=== PATIENT | female | born 1995 | race Caucasian/White ===

== ENCOUNTER 2016-06-19 16:44 | Emergency (ER) | payer MEDICAID, OTHER ==
[~2016-06-19 16:44] MED LIST: FERR325T72 PO; PREN1PAK2 PO
[2016-06-19 17:05] VITALS: BP 97/57; PULSE 84
--- NOTE | 2016-06-19 17:30 | PD ---
HPI Travel History International Travel<30 Days: No Contact w/Intl Traveler<30Days: No Known Affected Area: No History of Present Illness HPI This patient is a 20-year-old 2 para 2 previous set of twins present EDC is September 09, 2016 presently at 28 weeks and 2 days the patient states she presents with a chief complaint of earlier feeling one large contraction and then stop did not have any other contractions presently just feeling pressure no rupture of membranes no vaginal bleeding the baby is active No nausea no vomiting No fever no chills No headache or visual changes No diarrhea or constipation She denies any urinary tract symptoms last sexual intercourse was approximately 3 days ago [facility] her course has been unremarkable History Past Medical History Narrative Medical No known drug allergies history of anemia Obstetric History Obstetric History Previous section for twins November 22, 2011 she carried in both to term Past Surgical History Narrative Surgical 1 Family History Family History: Negative Social History Alcohol Use: No Tobacco Use: No Substance Abuse: No Allergies-Medications (Allergen,Severity, Reaction): Coded Allergies: No Known Allergies (Verified , 06/19/16) Home Meds Active Scripts Ferrous Gluconate 325 Mg [id number] Mg PO DAILY #30 TAB Ref 6 Prov:Leola Arias ALETA [facility] 06/06/16 Reported Medications W/O Vit A W/ Fe Carbo Pack (Citranatal Dha Pack)27-1 & 250 Mg Pack1 Ea PO DAILY 30 Days Ref 0 30 day supply. 04/24/16 Review of Systems General / Constitutional: No: Fever, Weight Gain, Weight Loss, Chills, Other Eyes: No: Diploplia, Blurred Vision, Visual changes, Pain, Photophobia, Other HENT: No: Headaches, Vertigo, Dental Difficulties, Lightheadedness, Other Cardiovascular: No: Irregular Rhythm, Chest Pain or Discomfort, Palpitations, Tachycardia, Syncope, Varicosities, Edema, Cyanosis, Other Respiratory: No: Cough, Short of Breath, Wheezing, Other Gastrointestinal: Abdominal Pain (feels pressure) Genitourinary: No: Urgency, Frequency, Dysuria, Nocturia, Hematuria, Decreased Urinary Output, Oliguria, Hesitancy, Dribbling, Incontinence, Pelvic Pain, Dyspareunia, Discharge, Menorrhagia, Vaginal Bleeding, Other Musculoskeletal: No: Limited ROM, Weakness, Cramping, Edema, Pain, Other Skin: No Rash, No Itching, No Dryness, No Lumps, No Change in Pigmentation, No Change in Nails, No Alopecia, No Lesions, No Breast Lumps, No Breast Tenderness , No Breast Swelling, No Other Neurologic: No: Weakness, Dizziness, Syncope, Focal Abnormalities, Coordination Problem, Headache, Slurred Speech, Seizures, Other Physical Exam Narrative GENERAL: Well-nourished, well-developed patient. Patient is alert oriented 3 and cooperative in no acute distress SKIN: Warm and dry. HEAD: Normocephalic and atraumatic. EYES: No scleral icterus. No injection or drainage. Conjunctiva are pink sclerae are clear ENT: No nasal drainage noted. Mucous membranes pink. Airway patent. CARDIOVASCULAR: Regular rate and rhythm without murmurs, gallops, or rubs. RESPIRATORY: Breath sounds equal bilaterally. No accessory muscle use. ABDOMEN/GI: Abdomen is gravid consistent with stated gestational age soft nontender no palpable contractions healed Pfannenstiel incision Gravid to [-] weeks size28 Fundal Height: [-] GENITOURINARY: Speculum exam is done patient has a thin white frothy discharge sample has been taken and sent for wet prep cervix is visibly closed External Genitalia: intact and normal in appearance BUS glands: [-] Cervix: [-] Posterior soft Dilatation: [-] Fingertip Effacement: [-] 0 Station: [-] Ballotable Presentation: [-] Vertex Membranes: [intact or ruptured] Uterine Contractions: [-] Mild uterine irritability FHT's: Category: [-] 1 Baseline: [-] 140 Reactive: [-]+ Variability: [-] Moderate jguu-[id number] variability Decels: [-]0 EXTREMITIES: No cyanosis or edema. 2+ reflexes NEUROLOGICAL: Awake and alert. Motor and sensory grossly within normal limits. Five out of 5 muscle strength in all muscle groups. Normal speech. Data Data Vital Signs Reviewed: Yes (blood pressure 97/57 pulse is 84 temperature is 99.1 ) Orders Vital Signs (Adult) .ON ADMISSION (06/19/16 17:14) ^ Labor Status (06/19/16 17:14) Urinalysis - C+S If Indicated (06/19/16 17:14) ^ Hydration (06/19/16 17:14) Fibronectin (06/19/16 17:14) Wet Prep Profile (06/19/16 17:14) MDM Medical Record Reviewed: Yes Interpretation(s) 20-year-old history of twins Presently at 28 weeks and 2 days Rule out UTI Chandu Georgina Narrative Course / MDM Laboratory data; fibronectin is negative Urine culture not indicated Wet prep positive for clue cells Will treat with Flagyl 500 mg by mouth twice a day for 5 days To give the patient her first dose here Having some mild uterine irritability will continue to hydrate with by mouth fluid she's not feeling any contractions If all resolved we'll discharge home Plan External monitoring By mouth fluid hydration Urinalysis fibronectin Wet prep Reevaluation Diagnosis Diagnosis: Primary Impression: Bacterial vaginosis Additional Impressions: 28 weeks gestation of Horton Erickson' contraction Disposition: 01 DISCHARGE HOME Condition: Stable Shi Shah MD Jun 19, 2016 17:30
[2016-06-19 18:09] LABS: BACTERIA, URINE OCC /hpf; BLOOD, URINE NEG (NEG); COMMENT (UR) CULT NOT INDICATED; CULTURE IF INDICATED CULT NOT INDICATED; GLUCOSE,URINE NEG (NEG); KETONE, URINE NEG (NEG); NITRITE,URINE NEG (NEG); SQUAMOUS EPITHELIAL CELL URINE 23 /hpf (0-5); URINE COLOR YELLOW (YELLW/STRAW)
[2016-06-19] MEDS ORDERED: metroNIDAZOLE 500 MG TAB PO ONE (18:30)
[2016-10-16] MEDS ORDERED: DEPO150I IM (09:33)
== END 2016-06-19 19:44 | disposition home or self-care (01) ==
LOC: HOBED 16:44
DX: O47.03 False labor before 37 completed weeks of gestation, third trimester (principal); O23.593 Infection of other part of genital tract in pregnancy, third trimester; O34.219 Maternal care for unspecified type scar from previous cesarean delivery; Z3A.28 28 weeks gestation of pregnancy
CPT/HCPCS: 81001; 82731; 87210; 99284

== ENCOUNTER 2016-09-04 09:17 | Inpatient (IN) | payer MEDICAID ==
[2016-09-04] VITALS (31 sets, daily range): BP systolic 73–128; BP diastolic 23–64; PULSE 67–103; RESP 18; TEMP 98.2–98.6
--- NOTE | 2016-09-04 09:28 | PD ---
HPI Date Seen: Sep 04, 2016 Time Seen: 09:20 (Josef Steele MD R1) Travel History International Travel<30 Days: No Contact w/Intl Traveler<30Days: No Known Affected Area: No (Josef Steele MD R1) History of Present Illness HPI 20 year old L2 at 39/2 weeks gestation presents to OB ED reporting ROM at about 07:00 this morning and feeling contractions. She states she noticed a leak of fluid this morning and noticed fluid running down her leg. She states her contractions have been regular. Reports +FM. She is GBS negative. She delivered twins at term in November of 2011 via and now desires a . Para: 1 : 2 (Josef Steele MD R1) History Past Medical History Medical History: Denies Significant Hx (Josef Steele MD R1) Obstetric History Obstetric History Patient delivered twins by on 11/22/2011 (Josef Steele MD R1) Past Surgical History Narrative Surgical in 2011 (Josef Steele MD R1) Family History Family History: Negative (Josef Steele MD R1) Social History Alcohol Use: No Tobacco Use: No Substance Abuse: No (Josef Steele MD R1) Allergies-Medications (Allergen,Severity, Reaction): Coded Allergies: No Known Allergies (Verified , 08/28/16) Home Meds Active Scripts Ferrous Gluconate 325 Mg [id number] Mg PO DAILY #30 TAB Ref 6 Prov:Leola Arias ALETA [facility] [place] 06/06/16 Reported Medications W/O Vit A W/ Fe Carbo Pack (Citranatal Dha Pack)27-1 & 250 Mg Pack1 Ea PO DAILY 30 Days Ref 0 30 day supply. 04/24/16 Review of Systems Except as stated in HPI: all other systems reviewed are Neg (Josef Steele MD R1) Physical Exam Narrative GENERAL: Well-nourished, well-developed patient. SKIN: Warm and dry. HEAD: Normocephalic and atraumatic. EYES: No scleral icterus. No injection or drainage. ENT: No nasal drainage noted. Mucous membranes pink. Airway patent. NECK: Supple, trachea midline. No JVD. CARDIOVASCULAR: Regular rate and rhythm without murmurs, gallops, or rubs. RESPIRATORY: Breath sounds equal bilaterally. No accessory muscle use. ABDOMEN/GI: Abdomen soft, non-tender, bowel sounds present, no rebound, no guarding Gravid to 39 weeks size GENITOURINARY: External Genitalia: intact and normal in appearance Cervix: [-] Dilatation: 4 Effacement: 90% Station: -1 Presentation: [-] Membranes: ruptured Uterine Contractions: q2-3 minutes FHT's: Category: I Baseline: 140s Reactive: yes Variability: mod Decels: intermittent variables EXTREMITIES: No cyanosis or edema. BACK: Nontender without obvious deformity. No CVA tenderness. NEUROLOGICAL: Awake and alert. Motor and sensory grossly within normal limits. Normal speech. (Josef Steele MD R1) Data Data Vital Signs Reviewed: Yes (Josef Steele MD R1) [facility] Medical Record Reviewed: Yes Plan 20 year old L2 at 39/2 weeks gestation presented to OB ED being admitted to L&D following SROM. 1. IUP - Category I tracing - Contractions q2-3 minutes on tocometer - Cervix: 490/-1 - Amnisure positive - Patient does not desire epidural - GBS negative - Continue expectant management dw Dr. Hernandez (Josef Steele MD R1) Attending Attestation The exam, history, and the medical decision-making described in the above note were completed with the assistance of the resident provider. I reviewed and agree with the findings presented. I attest that I had a [id number] encounter with the patient on the same day, and personally performed and documented my assessment and findings in the medical record. (Jerrell Hernandez MD) Josef Steele MD R1 Sep 04, 2016 09:28 Jerrell Hernandez MD Sep 04, 2016 12:02
[2016-09-04] MEDS ORDERED: LACTATED RINGER'S 1000 ML INJ 1,000 ML IV SCH (10:10)
[2016-09-04] MEDS ORDERED: LACTATED RINGER'S 1000 ML INJ 1,000 ML IV PRN (10:10)
[2016-09-04] MEDS ORDERED: MINERAL OIL 10 ML VIAL TOPICAL PRN (10:15)
[2016-09-04] MEDS ORDERED: LIDOCAINE HCL 1% 50 ML VIAL INFIL PRN (10:15)
[2016-09-04] MEDS ORDERED: LIDOCAINE HCL 1% 50 ML VIAL I-DERMAL PRN (10:15)
[2016-09-04] MEDS ORDERED: OXYTOCIN 30 UNITS-500ML PREMIX 500 ML IV ONE ×2 (10:15→12:15)
[2016-09-04] MEDS ORDERED: SODIUM CHLORID 0.9% 500 ML INJ 500 ML IV PRN (10:15)
[2016-09-04] MEDS ORDERED: CITRIC ACID-SODIUM CITRATE LIQ 30 ML UDC PO SCH (10:15)
[2016-09-04] MEDS ORDERED: SODIUM CHLOR 0.9% 1000 ML INJ 1,000 ML IV PRN (10:30)
[2016-09-04] MEDS ORDERED: ONDANSETRON HCL 4 MG/2 ML VIAL IV PRN (11:15)
--- NOTE | 2016-09-04 11:16 | HHI.HP ---
History & Physical H&P HPI Date Seen: Sep 04, 2016 Time Seen: 09:20 Travel History International Travel<30 Days: No Contact w/Intl Traveler<30Days: No Known Affected Area: No History of Present Illness HPI 20 year old L2 at 39/2 weeks gestation presents to OB ED reporting ROM at about 07:00 this morning and feeling contractions. She states she noticed a leak of fluid this morning and noticed fluid running down her leg. She states her contractions have been regular. Reports +FM. She is GBS negative. She delivered twins at term in November of 2011 via and now desires a . Para: 1 : 2 History (Limited) History Past Medical History Medical History: Denies Significant Hx Obstetric History Obstetric History Patient delivered twins by on 11/22/2011 Past Surgical History Narrative Surgical in 2011 Family History Family History: Negative Social History Alcohol Use: No Tobacco Use: No Substance Abuse: No Allergies-Medications Allergies-Medications (Allergen,Severity, Reaction): Coded Allergies: No Known Allergies (Verified , 08/28/16) Home Meds Active Scripts Ferrous Gluconate 325 Mg [id number] Mg PO DAILY #30 TAB Ref 6 Prov:AriasLeola CNM [employer] 06/06/16 Reported Medications W/O Vit A W/ Fe Carbo Pack (Citranatal Dha Pack)27-1 & 250 Mg Pack1 Ea PO DAILY 30 Days Ref 0 30 day supply. 04/24/16 ROS Review of Systems Except as stated in HPI: all other systems reviewed are Neg Physical Exam Physical Exam Narrative GENERAL: Well-nourished, well-developed patient. SKIN: Warm and dry. HEAD: Normocephalic and atraumatic. EYES: No scleral icterus. No injection or drainage. ENT: No nasal drainage noted. Mucous membranes pink. Airway patent. NECK: Supple, trachea midline. No JVD. CARDIOVASCULAR: Regular rate and rhythm without murmurs, gallops, or rubs. RESPIRATORY: Breath sounds equal bilaterally. No accessory muscle use. ABDOMEN/GI: Abdomen soft, non-tender, bowel sounds present, no rebound, no guarding Gravid to 39 weeks size GENITOURINARY: External Genitalia: intact and normal in appearance Cervix: [-] Dilatation: 4 Effacement: 90% Station: -1 Presentation: [-] Membranes: ruptured Uterine Contractions: q2-3 minutes FHT's: Category: I Baseline: 140s Reactive: yes Variability: mod Decels: intermittent variables EXTREMITIES: No cyanosis or edema. BACK: Nontender without obvious deformity. No CVA tenderness. NEUROLOGICAL: Awake and alert. Motor and sensory grossly within normal limits. Normal speech. Data Data Data Vital Signs Reviewed: Yes MDM MDM Medical Record Reviewed: Yes Plan 20 year old L2 at 39/2 weeks gestation presented to OB ED being admitted to L&D following SROM. 1. IUP - Category I tracing - Contractions q2-3 minutes on tocometer - Cervix: /-1 - Amnisure positive - Patient does not desire epidural - GBS negative - Continue expectant management dw Dr. Hernandez (Josef Steele MD R1) H&P The exam, history, and the medical decision-making described in the above note were completed with the assistance of the resident provider. I reviewed and agree with the findings presented. I attest that I had a [id number] encounter with the patient on the same day, and personally performed and documented my assessment and findings in the medical record. (Jerrell Hernandez MD) Josef Steele MD R1 Sep 04, 2016 11:16 Jerrell Hernandez MD Sep 04, 2016 12:01
--- NOTE | 2016-09-04 11:47 | PD.OB.DELI ---
Delivery Date: Sep 04, 2016 Anesthesia: None Episiotomy: None Vaginal Delivery: Normal, Spontaneous Presentation: Occiput anterior Nuchal Cord: None Delayed cord clamping (45 sec): No Infant: Female One Minute : 8 Five Minute : 8 Weight: 3340 grams Infant Care: Suctioned, Responded to stimulation Placenta: Spontaneous delivery, Intact, 3 vessel cord Laceration: Vaginal laceration, 1 deg Repair: Chromic interrupted Additional Information 20 year old now L3 delivered via uncomplicated over an intact perineum , Apgars were 8/8. Placenta delivered spontaneously intact with 3-vessel cord. Two small first degree lacerations were repaired using 3.0 chromic suture. EBL < 500 cc. Josef Steele MD R1 Sep 04, 2016 11:47
[2016-09-04 11:57] LABS: AUTOMATED NEUTROPHIL # 8.1 TH/MM3 (1.8-7.7); BASOPHIL % 0.3 % (0.0-2.0); EOSINOPHIL % 0.2 % (0.0-4.0); HEMATOCRIT 32.4 % (35.0-46.0); HEMO FLAGS DIFF FINAL; LYMPH % 16.7 % (9.0-44.0); LYMPHOCYTE # 1.8 TH/MM3 (1.0-4.8); MEAN CELL VOLUME 88.9 FL (80.0-100.0); MEAN CORPUSCULAR HEMOGLOBIN 30.8 PG (27.0-34.0); MEAN CORPUSCULAR HGB CONC 34.7 % (32.0-36.0); MONO % 6.4 % (0.0-8.0); NEUT % 76.4 % (16.0-70.0); PLATELET COUNT 143 TH/MM3 (150-450); RED BLOOD COUNT 3.64 MIL/MM3 (4.00-5.30); RED CELL DISTRIBUTION WIDTH 15.2 % (11.6-17.2); WHITE BLOOD COUNT 10.6 TH/MM3 (4.0-11.0)
[2016-09-04 12:00] LABS: BLOOD, URINE NEG (NEG); COMMENT (UR) CULT NOT INDICATED; CULTURE IF INDICATED CULT NOT INDICATED; GLUCOSE,URINE NEG (NEG); KETONE, URINE NEG (NEG); NITRITE,URINE NEG (NEG); SQUAMOUS EPITHELIAL CELL URINE 1 /hpf (0-5); URINE COLOR YELLOW (YELLW/STRAW)
[2016-09-04] MEDS ORDERED: SODIUM CHLORIDE 0.9% FLUSH 10 ML FLUSH IV FLUSH SCH (12:00)
[2016-09-04] MEDS ORDERED: ACETAMINOPHEN 325 MG TAB PO PRN (12:00)
[2016-09-04] MEDS ORDERED: ZOLPIDEM TARTRATE 5 MG TAB PO PRN (12:00)
[2016-09-04] MEDS ORDERED: BENZOCAINE 20% TOPICAL SPRAY 60 ML CAN TOPICAL PRN (12:00)
[2016-09-04] MEDS ORDERED: WITCH HAZEL 50%/GLYCERIN 12.5% 40 PAD JAR TOPICAL PRN (12:00)
[2016-09-04] MEDS ORDERED: DOCUSATE SODIUM 50 MG/SENNA 8.6 MG TAB PO PRN (12:00)
[2016-09-04] MEDS ORDERED: ONDANSETRON ODT 4 MG TAB PO PRN (12:00)
[2016-09-04] MEDS ORDERED: ALUMINUM/MAGNESIUM/SIMETH 30 ML CUP PO PRN (12:00)
[2016-09-04] MEDS ORDERED: SODIUM CHLORIDE 0.9% FLUSH 10 ML FLUSH IV FLUSH PRN (12:00)
[2016-09-04] MEDS: oxyCODONE/ACETAMINOPHEN 5 MG/325 MG TAB PO PRN ×2 (12:36→20:53)
[2016-09-04] MEDS ORDERED: MISOPROSTOL 200 MCG TAB PO ONE (14:00)
[2016-09-04] MEDS ORDERED: AMMONIA AROMATIC INHALANT 0.33 ML ONE (14:47)
[2016-09-04] MEDS ORDERED: DIPHTH/TETANUS/ACEL PERTUSSIS (BOOSTER) 0.5 ML VIAL/PFS IM ONE (16:00)
[2016-09-04] MEDS ORDERED: MEASLES, MUMPS, RUBELLA VACCINE 0.5 ML VIAL SQ ONE (16:00)
[2016-09-04] MEDS: IBUPROFEN 600 MG TAB PO PRN (17:36)
[2016-09-05] MEDS: IBUPROFEN 600 MG TAB PO PRN ×3 (01:49→19:12)
[2016-09-05] MEDS: oxyCODONE/ACETAMINOPHEN 5 MG/325 MG TAB PO PRN ×3 (01:49→19:13)
--- NOTE | 2016-09-05 07:26 | HHI.OB ---
Subjective Post Day: 1 Remarks Patient seen and examined this morning. AFVSS. Pain is well controlled. Decreased lochia. She is baby currently without any issues. Ambulating well without issues. Appetite is good. No nausea or vomiting. Denies breast tenderness. Objective Vitals/I&O Vital Signs Date Time Temp Pulse Resp B/P Pulse Ox O2 Delivery O2 Flow Rate FiO2 09/04/16 16:00 75 18 100/56 09/04/16 16:00 98.6 09/04/16 14:48 18 09/04/16 14:46 82 112/62 09/04/16 14:41 91 105/56 09/04/16 14:34 86 83/23 09/04/16 14:15 73 102/51 09/04/16 14:04 18 09/04/16 14:00 91 98/60 09/04/16 13:57 79 100/54 09/04/16 13:46 70 101/48 09/04/16 13:44 67 128/58 09/04/16 13:37 18 09/04/16 13:26 91 102/53 09/04/16 13:25 18 09/04/16 13:15 76 104/55 09/04/16 13:00 73 109/58 09/04/16 12:55 18 09/04/16 12:46 80 112/48 09/04/16 12:42 98.2 09/04/16 12:34 18 09/04/16 12:30 69 18 103/60 09/04/16 12:24 73 93/52 09/04/16 12:23 72 102/48 09/04/16 12:21 81 73/47 09/04/16 12:20 72 84/64 09/04/16 12:00 86 101/52 09/04/16 11:59 18 09/04/16 11:45 18 09/04/16 11:36 103 112/45 09/04/16 11:36 103 112/45 09/04/16 10:51 18 09/04/16 10:50 87 98/51 Objective Remarks GENERAL: Well-nourished, well-developed patient. CARDIOVASCULAR: Regular rate and rhythm without murmurs, gallops, or rubs. RESPIRATORY: Breath sounds equal bilaterally. No accessory muscle use. ABDOMEN/GI: Abdomen soft, non-tender. Fundus: Firm, non-tender at umbilicus. GENITOURINARY: Light to moderate bleeding. EXTREMITIES: No cyanosis or edema, non-tender, without signs of DVT. Medications and IVs Current Medications Medications (Trade) Dose Ordered Sig/Doreen Route Start Time Stop Time Status Last Admin (NS Flush) 2 ml BID IV FLUSH 09/04/16 12:00 (NS Flush) 2 ml UNSCH PRN IV FLUSH 09/04/16 12:00 (Tylenol) 650 mg Q4H PRN PO 09/04/16 12:00 (Motrin) 600 mg Q6H PRN PO 09/04/16 12:00 09/05/16 01:49 (Percocet 5-325 Mg) 1 tab Q4H PRN PO 09/04/16 12:00 09/05/16 01:49 (Americaine 20% Top Spr) 1 spray Q4H PRN TOPICAL 09/04/16 12:00 (Tucks Pads) 1 applic QID PRN TOPICAL 09/04/16 12:00 (Abigail-Colace) 2 tab Q12H PRN PO 09/04/16 12:00 (Ambien) 5 mg HS PRN PO 09/04/16 12:00 (Mag-Al Plus Susp Liq) 15 ml Q8H PRN PO 09/04/16 12:00 (Zofran Odt) 4 mg Q6H PRN PO 09/04/16 12:00 Assessment/Plan Problem List: (1) care following vaginal delivery Assessment and Plan 20 year old now L3 PPD#1. 1. care - AFVSS - Encouraged OOB, as tolerated - Advised pelvic rest x6 weeks - without any reported issues - Contraception: desires depo-provera - [facility] at [facility] Hospitalist Josef Steele MD R1 Sep 05, 2016 07:26
[2016-09-05 08:00] VITALS: BP 85/52; PULSE 70; RESP 18; TEMP 97.5
[2016-09-05] MEDS ORDERED: medroxyPROGESTERone ACETATE SUSP 150 MG/ML SYRINGE IM ONE (08:15)
[2016-09-05 16:30] VITALS: BP 89/52; PULSE 84; RESP 16; TEMP 98.7
[2016-09-05 21:45] VITALS: BP 87/46; PULSE 78; RESP 18; TEMP 98
[2016-09-06] MEDS: IBUPROFEN 600 MG TAB PO PRN ×3 (01:04→14:22)
--- NOTE | 2016-09-06 07:15 | HHI.OB ---
Subjective Post Day: 2 Remarks Patient seen and examined this morning. AFVSS. Pain is well controlled. Decreased lochia. She is baby currently without any issues. Ambulating well without issues. Appetite is good. No nausea or vomiting. Denies breast tenderness. She feels ready to go home today. (Josef Steele MD R1) Remarks I rounded on the patient. I rounded with the resident. I reviewed the resident' s assessment and plan of care for this patient. I am in agreement with the plan of care for this patient. (Shi Shah MD) Objective Vitals/I&O Vital Signs Date Time Temp Pulse Resp B/P Pulse Ox O2 Delivery O2 Flow Rate FiO2 09/05/16 21:45 78 87/46 09/05/16 21:45 98.0 18 09/05/16 16:30 98.7 84 16 89/52 09/05/16 08:00 97.5 70 18 85/52 Objective Remarks GENERAL: Well-nourished, well-developed patient. CARDIOVASCULAR: Regular rate and rhythm without murmurs, gallops, or rubs. RESPIRATORY: Breath sounds equal bilaterally. No accessory muscle use. ABDOMEN/GI: Abdomen soft, non-tender. Fundus: Firm, non-tender at umbilicus. GENITOURINARY: Light bleeding. EXTREMITIES: No cyanosis or edema, non-tender, without signs of DVT. Medications and IVs Current Medications Medications (Trade) Dose Ordered Sig/Doreen Route Start Time Stop Time Status Last Admin (NS Flush) 2 ml BID IV FLUSH 09/04/16 12:00 (NS Flush) 2 ml UNSCH PRN IV FLUSH 09/04/16 12:00 (Tylenol) 650 mg Q4H PRN PO 09/04/16 12:00 (Motrin) 600 mg Q6H PRN PO 09/04/16 12:00 09/06/16 01:04 (Percocet 5-325 Mg) 1 tab Q4H PRN PO 09/04/16 12:00 09/05/16 19:13 (Americaine 20% Top Spr) 1 spray Q4H PRN TOPICAL 09/04/16 12:00 (Tucks Pads) 1 applic QID PRN TOPICAL 09/04/16 12:00 (Abigail-Colace) 2 tab Q12H PRN PO 09/04/16 12:00 (Ambien) 5 mg HS PRN PO 09/04/16 12:00 (Mag-Al Plus Susp Liq) 15 ml Q8H PRN PO 09/04/16 12:00 (Zofran Odt) 4 mg Q6H PRN PO 09/04/16 12:00 (Josef Steele MD R1) Assessment/Plan Problem List: (1) care following vaginal delivery Assessment and Plan 20 year old now L3 PPD#1. 1. care - AFVSS - Encouraged OOB, as tolerated - Advised pelvic rest x6 weeks - without any reported issues - Contraception: desires depo-provera - [facility] at [facility] - Stable for discharge home today wdw OB Hospitalist (Josef Steele MD R1) Josef Steele MD R1 Sep 06, 2016 07:15 Shi Shah MD Sep 06, 2016 09:38
[2016-09-06] MEDS ORDERED: IBUP-232 PO (07:16)
--- NOTE | 2016-09-06 07:17 | HHI.DCPOC ---
Discharge Care Plan Diagnosis: (1) care following vaginal delivery Report Symptoms to Your Doctor -Temperate above 100.5 degrees -Redness, of incision or excessive or foul smelling drainage -Unusual pain or calf pain -Increased vaginal bleeding -Painful or difficulty urinating -Feelings of extreme sadness or anxiety after 2 weeks Goals to Promote Your Health To maintain your health at the optimal level, follow up with your OB provider within 6 weeks. Directions to Meet Your Goals Take your medications as prescribed Follow your dietary instruction Follow activity as directed Ensure plenty of rest for recovery Drink fluids for hydration Keep your appointments as scheduled Take your immunizations and boosters as scheduled If your symptoms worsen call your PCP, if no PCP go to Urgent Care Center or Emergency Room Smoking is Dangerous to Your Health. Avoid second hand smoke Call the 24-hour crisis hotline for domestic abuse at Josef Steele MD R1 Sep 06, 2016 07:17
[2016-09-06 07:35] VITALS: BP 88/61; PULSE 78; RESP 16; TEMP 98.5
[2016-09-06] MEDS ORDERED: medroxyPROGESTERone ACETATE SUSP 150 MG/ML SYRINGE IM ONE (10:45)
[2016-09-06] MEDS: oxyCODONE/ACETAMINOPHEN 5 MG/325 MG TAB PO PRN (14:22)
[2016-10-16] MEDS ORDERED: DEPO150I IM (09:33)
== END 2016-09-06 16:22 | disposition home or self-care (01) | DRG 775 ==
LOC: HOBED 09:17 → H2EA 10:06 → H1EA 15:14
PROVIDERS: ADMIT Obstetrics & Gynecology; ATTEND Obstetrics & Gynecology
PROC: 10E0XZZ Delivery of Products of Conception, External Approach (ICD-10-PCS; principal; 2016-09-04)
PROC: 0UQGXZZ Repair Vagina, External Approach (ICD-10-PCS; 2016-09-04)
DX: O34.219 Maternal care for unspecified type scar from previous cesarean delivery (principal); O71.4 Obstetric high vaginal laceration alone; Z3A.39 39 weeks gestation of pregnancy; Z37.0 Single live birth
CPT/HCPCS: 81001; 84112; 85025; 99285; J1050